=== PATIENT | female | born 1955 | race Caucasian/White ===

== ENCOUNTER → 2021-05-31 | Outpatient (CLI) | payer MEDICARE, OTHER ==
--- NOTE | 2021-05-31 17:00 | KCIC ---
MRI of the cervical spine without contrast 05/31/2021 CLINICAL HISTORY: Neck pain which radiates down the right arm. Right arm weakness and numbness for 2 to 3 months. TECHNIQUE: Unenhanced T1-weighted, T2-weighted and inversion recovery sagittal and gradient echo and T2-weighted axial images of the cervical spine were obtained. FINDINGS: Mild lateral curvature of the cervical spine is seen convex to the right. Degenerative sign al changes and loss of height are seen involving all of the disks of the cervical spine. Degenerative signal changes are seen within the marrow surrounding these discs. No area of abnormal signal intens ity is seen involving the cervical spinal cord. At the C2-3 disc space there is a minimal generalized disc bulge. Degenerative changes are seen invol ving the uncovertebral and facet joints bilaterally. These findings do not result in significant cent ral spinal canal or neural foraminal stenosis. At the C3-4 disc space there is a mild generalized disc bulge. Degenerative changes are seen involvin g the uncovertebral and facet joints, left greater than right. These findings do not result in signif icant central spinal canal stenosis. Mild left neural foraminal stenosis is seen. The right neural fo ramen is patent. At the C4-5 disc space there is a mild generalized disc bulge. Degenerative changes are seen involvin g the uncovertebral and facet joints, left greater than right. These findings do not result in signif icant central spinal canal stenosis. Mild left greater than right neural foraminal stenosis is seen. At the C5-6 disc space there is a mild generalized disc bulge. Degenerative changes are seen involvin g the uncovertebral and facet joints, left greater than right. These findings do not result in signif icant central spinal canal stenosis. Mild left neural foraminal stenosis is seen. The right neural fo ramen is patent. At the C6-7 disc space there is a minimal generalized disc bulge. Degenerative changes are seen invol ving the uncovertebral and facet joints, left greater than right. These findings when combined do not result in significant central spinal canal stenosis. Mild left neural foraminal stenosis is seen. Th e right neural foramen is patent. At the C7-T1 disc space there is a mild generalized disc bulge. Degenerative changes are seen involvi ng the facet joints, left greater than right. These findings when combined do not result in significa nt central spinal canal stenosis. Mild left neural foraminal stenosis is seen. The right neural jaylene en is patent. IMPRESSION: Degenerative changes are seen throughout the cervical spine. These findings do not result in significant central spinal canal stenosis. Mild left neural foraminal stenosis is seen at C3-4, C 5-6, C6-7 and C7-T1. Mild left greater than right neural foraminal stenosis is seen at C4-5. Electronically signed by: Segundo Patel MD (05/31/2021 4:57 PM) [id number]
--- NOTE | 2021-05-31 17:13 | KCIC ---
MRI of the lumbar spine without contrast 05/31/2021 CLINICAL HISTORY: Low back pain which radiates down the right leg. Right leg numbness and weakness. TECHNIQUE: Unenhanced T1-weighted and T2-weighted sagittal and axial and inversion recovery sagittal images of the lumbar spine were obtained. FINDINGS: Mild to moderate S-shaped curvature of the thoracolumbar spine is seen. Degenerative signal changes are seen involving all the disks of the lumbar spine. Degenerative signal changes are seen w ithin the marrow surrounding these discs. Loss of height of the L2-3 disc is noted. The conus medulla ris is normal in morphology, position, and signal characteristics. At the L1-2 disc space there is a mild generalized disc bulge. Degenerative changes are seen involvin g the facet joints bilaterally. These findings do not result in significant central spinal canal or n eural foraminal stenosis. At the L2-3 disc space there is a mild to moderate generalized disc bulge. Degenerative changes are s een involving the facet joints bilaterally. There is mild ligamentum flavum hypertrophy bilaterally. These findings when combined result in mild central spinal canal stenosis. No neural foraminal stenos is is seen. At the L3-4 disc space there is a mild to moderate generalized disc bulge. Degenerative changes are s een involving the facet joints bilaterally. There is mild ligamentum flavum hypertrophy bilaterally. These findings when combined result in mild central spinal canal stenosis. No neural foraminal stenos is is seen. At the L4-5 disc space there is a mild to moderate generalized disc bulge. Degenerative changes are s een involving the facet joints bilaterally. There is mild to moderate ligamentum flavum hypertrophy b ilaterally. These findings when combined result in mild central spinal canal stenosis. No neural fora claudine stenosis is seen. At the L5-S1 disc space there is a mild to moderate generalized disc bulge. This is eccentric to the right. Superimposed on this disc bulge is a right lateral focal disc herniation. This measures 6 mm i n AP diameter. Degenerative changes are seen involving the facet joints bilaterally. There is mild li gament flavum hypertrophy bilaterally. These findings when combined do not result in significant cent ral spinal canal stenosis. Moderate right neural foraminal stenosis is seen. The right lateral disc h erniation appears to impinge upon the right L5 nerve root as it exits the right neural foramen. The l eft neural foramen is patent. IMPRESSION: The changes of degenerative disc disease are seen throughout the lumbar spine. These find ings result in mild central spinal canal stenosis at L2-3, L3-4 and L4-5. A right lateral focal disc herniation is seen at L5-S1. This contributes to moderate right neural foraminal stenosis and appears to impinge upon the right L5 nerve root as it exits the right neural foramen. Electronically signed by: Segundo Patel MD (05/31/2021 5:11 PM) [id number]
== END ==
LOC: KCIC MRI 12:27
PROVIDERS: ATTEND Physician Assistant
DX: M47.27 Other spondylosis with radiculopathy, lumbosacral region (principal); M51.17 Intervertebral disc disorders with radiculopathy, lumbosacral region; M47.813 Spondylosis without myelopathy or radiculopathy, cervicothoracic region; M48.07 Spinal stenosis, lumbosacral region; M48.02 Spinal stenosis, cervical region; G57.91 Unspecified mononeuropathy of right lower limb
CPT/HCPCS: 72141; 72148